=== PATIENT | female | born 1950 ===

== ENCOUNTER 2016-12-15 19:46 | Emergency (ER) | payer OTHER ==
[2016-12-15 20:10] VITALS: TEMP 97.9
--- NOTE | 2016-12-15 20:32 | ED PDOC ---
Arrival/HPI - General Time Seen by Provider: 12/15/16 20:01 - History of Present Illness Narrative History of Present Illness (Text): 12/15/16 20:29 66 yo female, hx of htn, hld, presnents with cp. as per pt started last night, w /o inciting factor. pt reports "burning/pressure pain". worse midsternal. no fevers, n/v/d, urinary changes. Past Medical History - Provider Review Nursing Documentation Reviewed: Yes Family/Social History - Physician Review Nursing Documentation Reviewed: Yes Family/Social History: Unknown Family HX Allergies/Home Meds Allergies/Adverse Reactions: Allergies No Known Allergies Allergy (Unverified 12/15/16 20:28) Review of Systems - Review of Systems Constitutional: Normal Eyes: Normal ENT: Normal Respiratory: Normal Cardiovascular: Chest Pain Gastrointestinal: Normal Genitourinary Female: Normal Musculoskeletal: Normal Skin: Normal Neurological: Normal Endocrine: Normal Hemo/Lymphatic: Normal Psychiatric: Normal Physical Exam Vital Signs Temp Pulse Resp BP Pulse Ox 12/15/16 19:49 97.9 F 67 14 124/72 97 Temperature: Afebrile Blood Pressure: Normal Pulse: Regular Respiratory Rate: Normal Appearance: Positive for: Well-Appearing, Non-Toxic, Comfortable Pain Distress: None Mental Status: Positive for: Alert and Oriented X 3 - Systems Exam Head: Present: Atraumatic, Normocephalic Pupils: Present: PERRL Extroacular Muscles: Present: EOMI Conjunctiva: Present: Normal Mouth: Present: Moist Mucous Membranes Neck: Present: Normal Range of Motion Respiratory/Chest: Present: Clear to Auscultation, Good Air Exchange. No: Respiratory Distress, Accessory Muscle Use Cardiovascular: Present: Regular Rate and Rhythm, Normal S1, S2. No: Murmurs Abdomen: Present: Tenderness (minimal epigastric), Normal Bowel Sounds. No: Distention, Peritoneal Signs, Rebound, Guarding Back: Present: Normal Inspection Upper Extremity: Present: Normal Inspection. No: Cyanosis, Edema Lower Extremity: Present: Normal Inspection. No: Edema Neurological: Present: GCS=15, CN II-XII Intact, Speech Normal Skin: Present: Warm, Dry, Normal Color. No: Rashes Psychiatric: Present: Alert, Oriented x 3, Normal Insight, Normal Concentration Medical Decision Making ED Course and Treatment: 12/15/16 20:31 cp r/o acs - labs imaging pending. ekg nsr [address] t wave changes normal intervals 12/15/16 21:48 atypical pain, ekg no changes, trop neg x 1 day of pain. pt states neg stress 1 yr ago. pt offered obs for cp. declines wishes to go home. 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 outpt 12/15/16 21:49 pain free in er - Lab Interpretations Lab Results: 12/15/16 20:45 12/15/16 20:45 Lab Results 12/15/16 20:45: WBC 8.4, RBC 3.75, Hgb 12.1, Hct 35.3 L, MCV 94.1, MCH 32.3, MCHC 34.3, RDW 13.3, Plt Count 296, MPV 9.2, Gran % 55.2, Lymph % (Auto) 30.6, Taney % (Auto) 10.1 H, Eos % (Auto) 3.4, Baso % (Auto) 0.7, Gran # 4.66, Lymph # 2.6, Taney # 0.9 H, Eos # 0.3, Baso # 0.06, PT 10.4, INR 0.96, APTT 30.3, Sodium 137, Potassium 3.6, Chloride 104, Carbon Dioxide 24, Anion Gap 13, BUN 14, Creatinine 0.6, Est GFR ( Amer) > 60, Est GFR (Non-Af Amer) > 60, Random Glucose 88, Calcium 8.8, Magnesium 2.2, Total Bilirubin 0.4, AST 34, ALT 40, Alkaline Phosphatase 91, Lactate Dehydrogenase 399, Total Creatine Kinase 81, Troponin I < 0.01, Total Protein 7.5, Albumin 3.7, Globulin 3.8, Albumin/ Globulin Ratio 1.0 L, Lipase 121 - RAD Interpretation Radiology Orders: 12/15/16 20:29 CHEST PORTABLE [RAD] Stat - Medication Orders Current Medication Orders: Discontinued Medications Pantoprazole Sodium (Protonix Inj) 40 mg IVP STAT STA Stop: 12/15/16 20:30 Last Admin: 12/15/16 20:49 Dose: 40 MG IVP Administration Document 12/15/16 20:49 EKEOO (Rec: 12/15/16 20:49 [id number]) Charges for Administration # of IVP Administrations 1 Disposition/Present on Arrival - Present on Arrival Any Indicators Present on Arrival: No - Disposition Have Diagnosis and Disposition been Completed?: Yes Diagnosis: Chest pain Disposition: HOME/ ROUTINE Disposition Time: 21:49 Condition: STABLE Discharge Instructions (ExitCare): Chest Pain (ED) Additional Instructions: please see your doctor and coffee shop attendant. return to er with worsening symptoms or concerns.
[2016-12-15 20:53] LABS: ADD MANUAL DIFF? NO
[2016-12-15 21:01] LABS: BASO # 0.06 K/mm3 (0.0-2.0); BASO % 0.7 % (0.0-3.0); EOS # 0.3 (0.0-0.7); EOS % 3.4 % (1.5-5.0); GRAN # 4.66 (1.4-6.5); GRAN % 55.2 % (50.0-68.0); HEMATOCRIT 35.3 % (36.0-48.0); LYMPH # 2.6 (1.2-3.4); LYMPH % 30.6 % (22.0-35.0); MEAN CELL VOLUME 94.1 fL (80.0-105.0); MEAN CORPUSCULAR HEMOGLOBIN 32.3 pg (25.0-35.0); MEAN CORPUSCULAR HGB CONC 34.3 g/dl (31.0-37.0); MEAN PLATELET VOLUME 9.2 fl (7.0-11.0); MONO # 0.9 (0.1-0.6); MONO % 10.1 % (1.0-6.0); PLATELET COUNT 296 10^3/uL (120.0-450.0); RED CELL DISTRIBUTION WIDTH 13.3 % (11.5-14.5); WHITE BLOOD COUNT 8.4 10^3/ul (4.5-11.0)
[2016-12-15 21:14] LABS: ALKALINE PHOSPHATASE 91 U/L (38-133); ALT/SGPT 40 U/L (7-56); AST/SGOT 34 U/L (15-39); BILIRUBIN,TOTAL 0.4 mg/dL (0.2-1.3); BLOOD UREA NITROGEN 14 mg/dL (7-21); CALCIUM 8.8 mg/dL (8.4-10.5); CARBON DIOXIDE 24 mmol/L (21-33); CHLORIDE 104 mmol/L (98-107); GFR AFRICAN-AMERICAN > 60; GLUCOSE,RANDOM 88 mg/dL (70-110); LIPASE 121 U/L (23-300); MAGNESIUM 2.2 mg/dL (1.7-2.2); POTASSIUM 3.6 mmol/L (3.6-5.0); SODIUM 137 mmol/L (132-148); TOTAL PROTEIN 7.5 g/dL (5.8-8.3)
[2016-12-15 21:20] LABS: INR 0.96 (0.93-1.08); PARTIAL THROMBOPLASTIN TIME 30.3 Seconds (23.7-30.8)
[2016-12-15 21:24] LABS: TROPONIN I < 0.01 ng/mL
[2016-12-15 23:16] VITALS: BP 107/61; PULSE 61; RESP 16; O2SAT 98
--- NOTE | 2016-12-16 11:07 | RAD ---
HISTORY: cp COMPARISON: No prior. FINDINGS: LUNGS: Minor linear bibasilar atelectasis and/or scarring PLEURA: No significant pleural effusion identified, no pneumothorax apparent. CARDIOVASCULAR: Normal. OSSEOUS STRUCTURES: No significant abnormalities. VISUALIZED UPPER ABDOMEN: Normal. OTHER FINDINGS: None. IMPRESSION: Minor linear bibasilar atelectasis and or scarring
--- NOTE | 2016-12-16 11:29 | CARD ---
APPROVED REPORT EKG Measurement Heart [id number] <Conclusion> Normal sinus rhythm Normal ECG
== END 2016-12-15 21:25 | disposition home or self-care (01) ==
LOC: ED 19:46
DX: R07.9 Chest pain, unspecified (principal); E78.5 Hyperlipidemia, unspecified; I10 Essential (primary) hypertension
CPT/HCPCS: 71010; 80053; 82550; 83615; 83690; 83735; 84484; 85025; 85610; 85730; 93005; 96374; 99282; C9113